=== PATIENT | female | born 1975 | race Hispanic/Latino ===

== ENCOUNTER 2020-10-05 13:07 | Emergency (ER) | payer BC ==
[~2020-10-05] VITALS: Ht 162.6 cm; Wt 100.7 kg
[2020-10-05] MEDS ORDERED: SODIUM CHLORIDE 0.9% 1000ML 1,000 ML IV STA ×2 (13:24)
[2020-10-05] MEDS ORDERED: ONDANSETRON HCL INJ 2MG/ML 2ML 2 MG/ML VIAL IV ONE (13:30)
[2020-10-05] MEDS ORDERED: CEFTRIAXONE SOD 1 GM VIAL IV ONE (13:30)
[2020-10-05] MEDS ORDERED: SODIUM CHLORIDE 0.9% 1000ML 1,000 ML ONE ×2 (13:30→13:57)
[2020-10-05] MEDS ORDERED: CEFTRIAXONE SOD 1 GM VIAL ONE (13:57)
[2020-10-05] MEDS ORDERED: FAMOTIDINE 20 MG/2 ML VIAL IV ONE (14:00)
[2020-10-05] MEDS ORDERED: CEFTAZIDIME SOD 1 GM/NS 50ML 50 ML IV ONE (14:00)
[2020-10-05] MEDS ORDERED: CEFTRIAXONE SOD 1 GM/NS 50 ML 50 ML IV ONE (14:00)
[2020-10-05] MEDS ORDERED: POTASSIUM CHLORIDE 20 MEQ TAB CR PO STA (14:01)
[2020-10-05] MEDS ORDERED: INSULIN REGULAR, HUMAN 100 UNIT/1 ML 3ML VIAL IV ONE (14:15)
[2020-10-05] MEDS ORDERED: POTASSIUM CHLORIDE 20 MEQ TAB CR PO ONE (14:16)
[2020-10-05] MEDS ORDERED: INSULIN REGULAR, HUMAN 100 UNIT/1 ML 3ML VIAL ONE (14:17)
[2020-10-05] MEDS ORDERED: FAMOTIDINE20 MG PO (15:05)
[2020-10-05] MEDS ORDERED: ZOFRAN4 MG PO (15:05)
[2020-10-05] MEDS ORDERED: AZITHROMYCIN250 MG PO (15:07)
[2020-10-05] MEDS ORDERED: TYLENOL # 31 EA PO (15:07)
[2020-10-05 15:19] VITALS: BP 119/58
== END 2020-10-05 15:22 | disposition home or self-care (01) ==
LOC: FSED 13:44
DX: U07.1 COVID-19 (principal); E11.65 Type 2 diabetes mellitus with hyperglycemia; R06.02 Shortness of breath; R00.0 Tachycardia, unspecified; E86.0 Dehydration; E87.6 Hypokalemia; R94.31 Abnormal electrocardiogram [ECG] [EKG]
CPT/HCPCS: 36415; 71045; 80048; 80076; 81003; 82553; 82948; 83605; 84484; 85025; 87040; 87071; 87086; 87186; 87205; 93005; 96374; 96375; 96376; 99284; J0696; J1817; J2405; J7030; U0002